=== PATIENT | male | born 1960 | race Caucasian/White ===

== ENCOUNTER 2023-01-17 23:55 | Emergency (ER) | payer SELFPAY ==
[2023-01-18 00:02] VITALS: BP 137/89; PULSE 77; RESP 18; TEMP 98.1; BMI 23.0
[2023-01-18 02:41] LABS: BASO % 0.5 % (0-2.0); EOS % 2.6 % (0-4.5); HEMOGLOBIN 14.5 GM/dL (11.7-16.9); LYMPH % 18.4 % (8-40); MCH 31.8 pg (25.7-33.7); MCHC 34.5 g/dl (32.0-35.9); MEAN CELL VOLUME 92.1 fl (80-96); MEAN PLT VOLUME 7.2 fl (7.5-11.1); MONO % 6.8 % (3.8-10.2); NEUT % 71.7 % (42.8-82.8); PLATELET COUNT 219 10^3/uL (134-434); RBC 4.56 M/mm3 (4.00-5.60); RDW 12.9 % (11.9-15.9); WHITE BLOOD COUNT 11.3 K/mm3 (4.0-10.0)
[2023-01-18 03:05] LABS: POTASSIUM 4.6 mmol/L (3.5-5.1)
[2023-01-18 03:07] LABS: CALCIUM 9.1 mg/dL (8.5-10.1)
[2023-01-18 03:08] LABS: ALBUMIN 3.8 g/dl (3.4-5.0); BLOOD UREA NITROGEN 16.3 mg/dL (7-18)
[2023-01-18 03:11] LABS: CREATININE 0.7 mg/dL (0.55-1.3)
[2023-01-18 03:12] LABS: BILIRUBIN,TOTAL 0.6 mg/dL (0.2-1)
[2023-01-18 03:13] LABS: TOT PROT 6.5 g/dl (6.4-8.2)
[2023-01-18 11:31] LABS: METHADONE, UR NEGATIVE (NEGATIVE); URINE AMPHETAMINES NEGATIVE (NEGATIVE); URINE BENZODIAZEPINES NEGATIVE (NEGATIVE)
[2023-01-18 11:32] LABS: OPIATES, URI NEGATIVE (NEGATIVE); URINE BARBITURATES NEGATIVE (NEGATIVE)
[2023-01-18 11:40] LABS: COCAINE, UR POSITIVE (NEGATIVE); PHENCYCLIDINE,URINE NEGATIVE (NEGATIVE)
== END 2023-01-18 03:58 | disposition left against medical advice (07) ==
LOC: JER 23:55
DX: R42 Dizziness and giddiness (principal); F41.9 Anxiety disorder, unspecified; F12.90 Cannabis use, unspecified, uncomplicated; Z20.822 Contact with and (suspected) exposure to COVID-19
CPT/HCPCS: 0241U-QW; 36415; 71045-TC-FY; 80053; 80307; 84484; 85025; 99284-25

== ENCOUNTER 2023-01-23 20:23 | Emergency (ER) | payer SELFPAY ==
[2023-01-23 20:48] VITALS: BP 130/92; PULSE 75; RESP 18; TEMP 98.2; BMI 23.0
[2023-01-23] MEDS ORDERED: DIPHTH,PERTUSS(ACELL),TET 0.5 ML DISP.SYRIN IM ONE ×2 (21:16→21:17)
== END 2023-01-23 21:26 | disposition home or self-care (01) ==
LOC: FER 20:23
PROC: 0HQFXZZ Repair Right Hand Skin, External Approach (ICD-10-PCS; principal; 2023-01-23)
PROC: 3E0234Z Introduction of Serum, Toxoid and Vaccine into Muscle, Percutaneous Approach (ICD-10-PCS; 2023-01-23)
DX: S61.216A Laceration without foreign body of right little finger without damage to nail, initial encounter (principal); W26.8XXA Contact with other sharp object(s), not elsewhere classified, initial encounter
CPT/HCPCS: 90715; 99282-25